=== PATIENT | female | born 1995 | race Hispanic/Latino ===

== ENCOUNTER 2018-06-29 14:27 | Outpatient (CLI) | payer MEDICAID ==
[2018-06-29 15:13] VITALS: BP 120/74
[2018-06-29] MEDS ORDERED: LACTATED RINGERS 500 ML IV ONE (15:39)
[2018-06-29 17:08] LABS: Bilirubin,Urine NEG (Negative); Blood,Urine NEG (Negative); Color,Urine Straw (Yellow); Protein,Urine <15 mg/dL mg/dL (Negative); Urobilinogen,Urine < 2.0 mg/dL (<2.0); WBC,Urine < 1.0 /HPF (0.0-6.0)
--- NOTE | 2018-06-29 17:54 | Ultrasound Report ---
FINAL REPORT PROCEDURE: Limited transvaginal pelvic ultrasound. TECHNIQUE: Real-time transvaginal sonography in multiple planes of the pelvis was performed with image documentation. This examination was performed without Doppler. Vascular abnormalities, including ovarian torsion, will not be detectable without Doppler evaluation. CPT 38377 HISTORY: , vaginal spotting. COMPARISON: No prior studies are available for comparison. FINDINGS: The cervix measures 3.6 centimeters in length. The cervix appears closed. IMPRESSION: Normal cervix.
[2018-06-29] MEDS ORDERED: LACTATED RINGERS 1,000 ML IV SCH (18:00)
--- NOTE | 2018-06-29 18:27 | Ultrasound Report ---
FINAL REPORT PROCEDURE: US OB LIMITED, with limited transvaginal images TECHNIQUE: Real-time limited sonographic examination was performed for evaluation of size, position, heartbeat, fluid volume for each fetus with image documentation (1 or more fetuses). Transvaginal images of the cervix were included. HISTORY: CERVICAL LENGTH AND PLACENTA SCAN COMPARISON: No prior studies are available for comparison. FINDINGS: MATERNAL Cervix length: Transvaginal measurement is 3.6 cm. Internal Os: Closed . FETUS IUP: Single living intrauterine . Position: Breech. Placental position: Posterior, without previa. At the superior aspect of the placenta near the fundus there is a small hypoechoic area measuring up to 1.3 centimeters, which is nonspecific. This could be related to a small subacute hematoma. Follow-up could be obtained as clinically indicated. There is a normal thickness retroplacental hypoechoic band the placenta from the myometrium. Heart rate and rhythm: 166 BPM, Regular . anatomic survey: Normal . IMPRESSION: Cervix measures 3.6 centimeters in length, with no funneling. Placenta is unremarkable in appearance except for a small 1.3 centimeter hypoechoic area near the fundus, which is nonspecific.
== END 2018-06-29 19:14 | disposition home or self-care (01) ==
LOC: TRG 14:27
PROVIDERS: ATTEND Obstetrics & Gynecology
DX: O47.02 False labor before 37 completed weeks of gestation, second trimester (principal); Z3A.22 22 weeks gestation of pregnancy
CPT/HCPCS: 59025; 76815; 76817; 81001; 96360; 96361; J7120

== ENCOUNTER 2018-10-01 17:23 | Outpatient (CLI) | payer OTHER, MEDICAID ==
[2018-10-01] MEDS ORDERED: LACTATED RINGERS 1,000 ML ONE (17:44)
[2018-10-01 17:51] VITALS: BP 109/73
[2018-10-01 18:17] LABS: Bacteria,Urine 1+ /HPF (Negative); Bilirubin,Urine NEG (Negative); Blood,Urine NEG (Negative); Color,Urine Yellow (Yellow); Urobilinogen,Urine < 2.0 mg/dL (<2.0)
[2018-10-01] MEDS ORDERED: LACTATED RINGERS 500 ML IV ONE (19:02)
[2018-10-01] MEDS ORDERED: ZOFRAN IM ONE (19:02)
== END 2018-10-01 20:20 | disposition home or self-care (01) ==
LOC: TRG 17:23
PROVIDERS: ATTEND Obstetrics & Gynecology
DX: O26.893 Other specified pregnancy related conditions, third trimester (principal); R11.0 Nausea; Z3A.36 36 weeks gestation of pregnancy
CPT/HCPCS: 59025; 81001; 96360; 96372; J2405; J7120; 96361; 96374; 96376

== ENCOUNTER 2018-11-10 14:30 | Emergency (ER) | payer MEDICAID, OTHER ==
[2018-11-10] MEDS ORDERED: FIORICET PO ONE (17:17)
[2018-11-10] MEDS ORDERED: REGLAN IV ONE (17:17)
[2018-11-10] MEDS ORDERED: NACL 0.9% 1000 ML 1,000 ML IV ONE ×2 (17:17)
[2018-11-10] MEDS ORDERED: BENADRYL IV ONE (17:18)
[2018-11-10] MEDS ORDERED: SOLU-Medrol IV ONE (17:18)
[2018-11-10] MEDS ORDERED: IMITREX SUB-Q ONE ×2 (17:18→19:33)
--- NOTE | 2018-11-10 17:22 | Emergency Department Report ---
ED General Adult HPI - General Chief complaint: Headache Stated complaint: PAIN/HEADACHE Time Seen by Provider: 11/10/18 16:59 Source: patient Mode of arrival: Ambulatory Limitations: No Limitations - History of Present Illness Initial comments: The patient assist days status post vaginal delivery and presents to the emergency department with a headache. Patient states received epidural for childbirth and has had a headache since epidural. Patient states she's taken Motrin, Tylenol, and Excedrin at home without any relief. Patient states standing up makes her headache worse. She describes a headache as throbbing in nature. Patient does have a history of migraines and states this is not the worst headache of her life. She denies chest pain, shortness breath, abdominal pain, fever -: Gradual Location: head Radiation: non-radiation Severity scale (0 -10): 8 Quality: other (throbbing) Improves with: none Worsens with: movement Associated Symptoms: denies other symptoms Treatments Prior to Arrival: none - Related Data Home Medications Medication Instructions Recorded Confirmed Last Taken Ferrous Sulfate [Iron] 325 mg PO BID 11/06/18 11/06/18 Unknown Vit-Fe Fumar-FA [ 1 tab PO QDAY 11/06/18 11/06/18 Unknown Vitamin] Previous Rx's Medication Instructions Recorded Last Taken Type Ferrous Sulfate [Feosol 325 MG tab] 325 mg PO BID #60 tablet 11/06/18 Unknown Rx Ibuprofen [Motrin] 600 mg PO Q8H PRN #30 tablet 11/06/18 Unknown Rx Butalb/Acetamin/Caff 50-325-40 1 tab PO Q6HR PRN #24 tab 11/10/18 Unknown Rx [Fioricet] SUMAtriptan SUCCINATE [Imitrex] 25 mg PO BID #8 tab 11/10/18 Unknown Rx Allergies Allergy/AdvReac Type Severity Reaction Status Date / Time No Known Allergies Allergy Unverified 06/29/18 15:28 ED Review of Systems ROS: Stated complaint: PAIN/HEADACHE Other details as noted in HPI Comment: All other systems reviewed and negative Constitutional: denies: chills, fever Eyes: denies: eye pain, eye discharge, vision change ENT: denies: ear pain, throat pain Respiratory: denies: cough, shortness of breath, wheezing Cardiovascular: denies: chest pain, palpitations Endocrine: no symptoms reported Gastrointestinal: denies: abdominal pain, nausea, diarrhea Genitourinary: denies: urgency, dysuria, discharge Musculoskeletal: denies: back pain, joint swelling, arthralgia Skin: denies: rash, lesions Neurological: headache. denies: weakness, paresthesias Psychiatric: denies: anxiety, depression Hematological/Lymphatic: denies: easy bleeding, easy bruising ED Past Medical Hx - Past Medical History Previous Medical History?: No Hx Hypertension: No Hx Congestive Heart Failure: No Hx Diabetes: No Hx Deep Vein Thrombosis: No Hx Renal Disease: No Hx Sickle Cell Disease: No Hx Seizures: No Hx Asthma: No Hx COPD: No Hx HIV: No - Surgical History Past Surgical History?: No - Social History Smoking Status: Never Smoker Substance Use Type: None - Medications Home Medications: Home Medications Medication Instructions Recorded Confirmed Last Taken Type Ferrous Sulfate [Feosol 325 MG tab] 325 mg PO BID #60 tablet 11/06/18 Unknown Rx Ferrous Sulfate [Iron] 325 mg PO BID 11/06/18 11/06/18 Unknown History Ibuprofen [Motrin] 600 mg PO Q8H PRN #30 tablet 11/06/18 Unknown Rx Vit-Fe Fumar-FA [ 1 tab PO QDAY 11/06/18 11/06/18 Unknown History Vitamin] Butalb/Acetamin/Caff 50-325-40 1 tab PO Q6HR PRN #24 tab 11/10/18 Unknown Rx [Fioricet] SUMAtriptan SUCCINATE [Imitrex] 25 mg PO BID #8 tab 11/10/18 Unknown Rx ED Physical Exam - General Limitations: No Limitations General appearance: alert, in no apparent distress - Head Head exam: Present: atraumatic, normocephalic - Eye Eye exam: Present: normal appearance, PERRL, EOMI - ENT ENT exam: Present: mucous membranes moist - Neck Neck exam: Present: normal inspection - Respiratory Respiratory exam: Present: normal lung sounds bilaterally. Absent: respiratory distress, wheezes, rales, rhonchi - Cardiovascular Cardiovascular Exam: Present: regular rate, normal rhythm. Absent: systolic murmur, diastolic murmur, rubs, gallop - GI/Abdominal GI/Abdominal exam: Present: soft, normal bowel sounds. Absent: distended, tenderness - Extremities Exam Extremities exam: Present: normal inspection - Back Exam Back exam: Present: normal inspection - Neurological Exam Neurological exam: Present: alert, oriented X3, CN II-XII intact. Absent: motor sensory deficit - Psychiatric Psychiatric exam: Present: normal affect, normal mood - Skin Skin exam: Present: warm, dry, intact, normal color. Absent: rash ED Course Vital Signs 11/10/18 14:36 Temperature 98.2 F Pulse Rate 68 Respiratory 18 Rate Blood Pressure 135/89 O2 Sat by Pulse 100 Oximetry ED Medical Decision Making - Lab Data Lab Results 11/10/18 Range/Units 17:02 Urine Color [place] (Yellow) Urine Turbidity Clear (Clear) Urine pH 6.0 (5.0-7.0) Ur Specific [place] 1.026 (1.003-1.030) Urine Protein 100 mg/dl (Negative) mg/dL Urine Glucose (UA) Neg (Negative) mg/dL Urine Ketones Tr (Negative) mg/dL Urine Blood Lg (Negative) Urine Nitrite Neg (Negative) Urine Bilirubin Neg (Negative) Urine Urobilinogen < 2.0 (<2.0) mg/dL Ur Leukocyte Esterase Mod (Negative) Urine WBC (Auto) 46.0 H (0.0-6.0) /HPF Urine RBC (Auto) > 182.0 (0.0-6.0) /HPF U Epithel Cells (Auto) 1.0 (0-13.0) /HPF Urine Bacteria (Auto) 1+ (Negative) /HPF Ur Transition Epith Cell 3 /HPF Urine Mucus 1+ /HPF - Medical Decision Making Patient had relief of her headache with medications given in ED Critical care attestation.: If time is entered above; I have spent that time in minutes in the direct care of this critically ill patient, excluding procedure time. ED Disposition Clinical Impression: Headache, UTI (urinary tract infection) Disposition: DC- TO HOME OR SELFCARE Is pt being admited?: No Does the pt Need Aspirin: No Condition: Stable Instructions: Acute Headache (ED), Urinary Tract Infection in Men (ED) Additional Instructions: Return if worse Prescriptions: Butalb/Acetamin/Caff 50-325-40 [Fioricet] 1 tab PO Q6HR PRN #24 tab PRN Reason: Headache SUMAtriptan SUCCINATE [Imitrex] 25 mg PO BID #8 tab Referrals: KENDELL CARVER MD [Primary Care Provider] - 3-5 Days Time of Disposition: 19:19
[2018-11-10 17:57] LABS: Bacteria,Urine 1+ /HPF (Negative); Bilirubin,Urine NEG (Negative); Blood,Urine LG (Negative); Color,Urine Amber (Yellow); Mucus,Urine 1+ /HPF; Urobilinogen,Urine < 2.0 mg/dL (<2.0)
[2018-11-10 17:59] LABS: RBC,Urine > 182.0 /HPF (0.0-6.0)
[2018-11-10 20:27] VITALS: BP 126/85
--- NOTE | 2018-11-17 12:52 | Progress Note ---
Subjective Date of service: 11/17/18 Principal diagnosis: Headache Interval history: Consulted regarding Ms. Valdovinos's complaint of headache. She gave 11/05/18 and had labor epidural placed for analgesia. She reports that headache began PPD 1 and has persisted since then. Pain is described as aching/pressure located all over the head. Pain is better with lying down and worse with sitting or standing. Initially there was associated neck pain and stiffness but that has since improved. She denies dizziness, parasthesias, visual disturbance, or extremity numbness/weakness. There is mild back pain at the catheter insertion site which has also improved. She was evaluated in the ED approx 4 days after headache onset and was prescribed fioricet and sumatriptan. She feels that these medications, especially the sumatriptan were most effective at pain relief. She ran out of sumatriptan yesterday and reports that pain has since increased some, though is not as severe as before. She presented today for evaluation for possible PDPH. On exam, patient appears well, in no acute distress. Ambulation and speech are normal. She is able to hold conversation while sitting upright. There are no gross neurologic deficits and the catheter insertion site is nontender, nonerythematous, and appears to be healing well. At this time, there is suspicion for PDPH with or without some component of migraine although she is remote from delivery at this time. I discussed with the patient my interpretati on of the symptoms and of her clinical course since symptom onset. I described blood patch procedure, benefits, and potential risks. I also outlined alternative treatment modalities including continued PO hydration and PO analgesics. Will not pursue blood patch procedure at this time as it seems patient has overall had improvement in symptoms and is currently able to participate in the care of her . I did recommend initiating gabapentin 300mg TID (may decrease to BID or qHS if too sedating), continuing sumatriptan 25mg BID and fioricet prn. Patient was advised of red-flag symptoms and instructed to return to [facility] for further evaluation if they present. She was also encouraged to return in 5-7 days if current symptoms persist. Recommendations were communicated with Dia Delgado, who was able to e-prescribe gabapentin and sumatriptan to patient's preferred pharmacy. Yoana Porter MD Anesthesiology
== END 2018-11-10 20:27 | disposition home or self-care (01) ==
LOC: ED 14:30
DX: R51 Headache (principal); N39.0 Urinary tract infection, site not specified
CPT/HCPCS: 81001; 96372; 96374; 96375; 99283; J1200; J2765; J2930; J7030; J3030

== ENCOUNTER 2018-11-27 02:31 | Emergency (ER) | payer SELFPAY | END 2018-11-27 05:23 | disposition left against medical advice (07) | LOC: ED 02:31 ==